=== PATIENT | female | born 1950 | race Caucasian/White ===

== ENCOUNTER → 2018-04-10 10:08 | Outpatient (CLI) | payer MEDICARE, SELFPAY ==
--- NOTE | 2018-04-10 | DI.MRI.S_ITS ---
PROCEDURE: MR KNEE LT WO CON INDICATIONS: PRIMARY OSTEOARTHRITIS LEFT KNEE TECHNIQUE: Noncontrast sagittal PD fast spin echo and T2 fast spin echo with fat saturation, sagittal 3-D FLASH with fat saturation; coronal T1 spin echo and PD fast spin echo with fat saturation, and axial PD fast spin echo with fat saturation through the knee. COMPARISON: [facility] Outside Film, MR, MR KNEE LEFT WITHOUT CONTRAST, 01/20/2018, 11:33. FINDINGS: Image quality: Excellent. Menisci: There is medial extrusion of the medial meniscus. There is a marked Cook signal intensity within the medial meniscal body and posterior horn, demonstrating superior and inferior articular surface extension, indicating degenerative tearing. Radial tearing of the anterior horn medial meniscus is present adjacent to the medial meniscal body. There is amorphous high signal intensity within the anterior and posterior horns of the lateral meniscus, demonstrating superior and inferior articular surface extension. Cruciate ligaments: The anterior and posterior cruciate ligaments appear intact. Medial structures: The medial collateral ligament appears intact. Visualized portions of the pes anserinus tendons appear normal. There is mild T2 signal elevation adjacent to the tibial insertion of the semimembranosus. No abnormal bursal fluid. Lateral structures: The lateral collateral ligament, long and short heads of the biceps femoris tendon appear intact. The popliteus tendon appears normal. Iliotibial band appears normal. Anterior structures: The quadriceps and patellar tendons appear intact. Patellar alignment is normal. No femoral trochlear dysplasia or ventral trochlear prominence. No edema in the infrapatellar fat pad. Bones and cartilage: No bone marrow contusions or fractures. There is increased, moderate ill-defined T2 signal elevation within the weightbearing aspects of the medial femoral condyle and medial tibial plateau, compatible with degenerative marrow edema. There is moderate tricompartmental periarticular osteophyte formation. Severe diffuse articular cartilage loss overlies the weightbearing aspects of the medial femoral condyle and medial tibial plateau, as before. Mild diffuse articular cartilage loss overlies the weightbearing aspects of the lateral femoral condyle and lateral tibial plateau, as before. There is moderate articular cartilage loss overlying the medial patellar facet and medial apex. Joint space: There is a large knee joint effusion and a trace Aguilar's cyst. There is a 43 mm ganglion cyst along the popliteus. Normal appearing synovial plicae are incidentally noted. IMPRESSION: 1. Medial and lateral meniscal tearing. 2. Tricompartmental osteoarthritis with associated articular cartilage loss. 3. Knee joint effusion, Aguilar's cyst, and ganglion cyst along the popliteus. 4. Insertional tendinitis of the semimembranosus. Dictated by: Sugey Cook M.D. on 04/10/2018 at 11:45 Approved by: Sugey Cook M.D. on 04/10/2018 at 11:49
== END ==
PROVIDERS: PCP Family Medicine; Visit Provider Orthopaedic Surgery
DX: M17.12 Unilateral primary osteoarthritis, left knee (principal); S83.282A Other tear of lateral meniscus, current injury, left knee, initial encounter; S83.242A Other tear of medial meniscus, current injury, left knee, initial encounter; M25.462 Effusion, left knee; M71.22 Synovial cyst of popliteal space [Baker], left knee; M67.462 Ganglion, left knee
CPT/HCPCS: 73721

== ENCOUNTER → 2018-04-22 09:52 | Outpatient (CLI) | payer MEDICARE, SELFPAY ==
[2018-04-22 12:10] LABS: Add Manual Diff / Slide Review NO; Basophils Percent Auto 0.3 % (0-2); Eosinophils Percent Auto 1.6 % (2-4); Hematocrit 40.4 % (36-46); Hemoglobin 13.6 g/dL (12.0-16.0); Lymphocytes Percent Auto 26.3 % (25-40); Mean Corpuscular HGB Conc 33.6 % (30-36); Mean Corpuscular Hemoglobin 30.8 PG (26-34); Mean Corpuscular Volume 91.8 fL (80-100); Monocytes Percent Auto 11.8 % (3-14); Neutrophils Absolute Auto 3700 /uL (3000-5900); Platelet Count 352 X10^3/uL (150-400); Red Cell Distribution Width 13.2 % (11.6-14.8); White Blood Cell Count 6.1 X10^3/uL (4.5-11.0)
[2018-04-22 12:40] LABS: Carbon Dioxide 29 mmol/L (22-32); Chloride 100 mmol/L (98-107); HEMOLYSIS < 15 (0-50); Sodium 141 mmol/L (137-145)
[2018-04-22 12:46] LABS: Potassium 5.5 mmol/L (3.4-5.1)
== END ==
PROVIDERS: PCP Family Medicine; Visit Provider Orthopaedic Surgery
DX: Z01.812 Encounter for preprocedural laboratory examination (principal); Z01.818 Encounter for other preprocedural examination
CPT/HCPCS: 36415; 80051; 85025; 93005

== ENCOUNTER → 2018-04-28 09:37 | Outpatient (CLI) | payer MEDICARE, SELFPAY ==
[2018-04-28 11:19] LABS: Blood Urea Nitrogen 15 mg/dL (7-17); Calcium 9.3 mg/dL (8.4-10.2); Carbon Dioxide 33 mmol/L (22-32); Chloride 100 mmol/L (98-107); Estimated Glomerular Filt Rate > 60.0 mL/min (>60); Glucose 103 mg/dL (80-110); HEMOLYSIS < 15 (0-50); Potassium 4.7 mmol/L (3.4-5.1); Sodium 142 mmol/L (137-145)
== END ==
PROVIDERS: PCP Family Medicine; Visit Provider Physician Assistant
DX: M17.12 Unilateral primary osteoarthritis, left knee (principal)
CPT/HCPCS: 36415; 80048

== ENCOUNTER 2018-05-09 16:05 | Emergency (ER) | payer MEDICARE, SELFPAY ==
[2018-05-09 16:10] VITALS: BP 173/77; PULSE 75; TEMP 36.8; O2SAT 97; BMI 36.5
[2018-05-09 17:43] VITALS: BP 138/58; PULSE 66; RESP 15; TEMP 36.4; O2SAT 98
--- NOTE | 2018-05-09 18:07 | ED.EPISTAXIS ---
HPI - Epistaxis General Chief complaint: Nasal Problem Stated complaint: NON STOP NOSE BLEED Time Seen by Provider: 05/09/18 17:02 Source: patient and family Mode of arrival: ambulatory Limitations: no limitations History of Present Illness HPI Narrative: 67-year-old female nonsmoker presents to the emergency department with her and a chief complaint of a left-sided nosebleed that started a few hours ago in the absence of injury. It will not stop despite all of her efforts at home including pressure and cotton balls. She does not take any blood thinners and denies any recent injury. She does state that the recently turned their furnace on. She is not dizzy nor weak or lightheaded MD complaint: epistaxis Location: left nostril Onset (ago): hour(s) Duration: constant Treatment prior to arrival: nose pinching and head tilted back Related Data Home Medications Medication Instructions Recorded Confirmed aspirin 81 mg PO QPM 04/29/18 05/09/18 Allergies Allergy/AdvReac Type Severity Reaction Status Date / Time No Known Drug Allergies Allergy Verified 05/09/18 16:14 Review of Systems Review of Systems All systems reviewed & are unremarkable except as noted in HPI and below Constitutional Denies chills, Denies fever(s), Denies lethargy and Denies weakness Eyes Denies change in vision, Denies eye discharge, Denies irritation and Denies loss of vision ENT Ears, Nose, Mouth, and Throat: Denies change in voice, Denies neck pain and Denies sore throat Comments: nose bleed Cardiovascular Denies chest pain, Denies irregular heart rhythm, Denies lightheadedness, Denies palpitations, Denies dyspnea, Denies dyspnea on exertion and Denies orthopnea Respiratory Denies cough, Denies dyspnea, Denies dyspnea on exertion and Denies wheezing Gastrointestinal Gastrointestinal: Denies abdominal pain, Denies change in bowel habits, Denies diarrhea, Denies nausea and Denies vomiting Genitourinary Denies hematuria, Denies flank pain, Denies urinary incontinence and Denies urinary urgency Musculoskeletal Denies neck pain Integumentary/Breasts Denies pruritus, Denies erythema, Denies rash and Denies wounds Neurologic Denies confusion, Denies loss of vision and Denies weakness Psychiatric Denies anxiety, Denies confusion, Denies depression, Denies homicidal ideation and Denies suicidal ideation Endocrine Denies palpitations Hematologic/Lymphatic Denies easy bruising Allergic/Immunologic Denies wheezing PFSH Medical History Arthritis (Acute) Dandruff (Acute) Dry skin (Acute) Elevated cholesterol (Acute) Numbness and tingling in both hands (Acute) Upper GI bleed (Acute) Surgical History Hx of tonsillectomy (Acute) Social History Smoking Status: Former smoker Exam Narrative Exam Narrative: GEN: AOx3 and in mild distress EYES: Pupils are equal, round, and reactive to light and accommodation. Extraoccular muscles are intact bilaterally. There is no subconjunctival hemorrhage or exudate. ENT: Active bleeding from left there. There is what appears to be an irritated polyp on the septum and some small area of irritated septum just inferior and posterior. CHEST: Lungs are clear to auscultation bilaterally and free of wheezes, rales, or rhonchi. Heart rate is regular rhythm, there are no murmurs, clicks, rubs, or gallops. There is no chest wall tenderness. ABD: Abdomen is soft and nontender. There is no guarding or rebound. Bowel sounds are normal in all 4 quadrants. There is no mass or organomegaly. EXT: Full painless ROM of all extremities with no loss of sensation or strength. SKIN: Warm, pink, and dry. No erythema or rash Initial Vital Signs Initial Vital Signs: Vital Signs Temperature 98.2 F 05/09/18 16:10 Pulse Rate 75 05/09/18 16:10 Blood Pressure 173/77 H 05/09/18 16:10 Pulse Oximetry 97 05/09/18 16:10 Procedures Epistaxis Control Time Out Performed: No Nostril: left Nose Prepped With: oxymetazoline Direct Inspection: yes Clots Removed by: suction Cautery Used: silver nitrate Patient Tolerated Procedure: well Course Vital Signs - 8 hr 05/09/18 17:43 05/09/18 19:03 Temperature 97.6 F 97.5 F L Pulse Rate 66 72 Respiratory Rate 15 16 Blood Pressure [Left Arm] 138/58 L 158/67 H Pulse Oximetry 98 96 MDM - Epistaxis MDM Narrative Medical decision making narrative: Patient has visualized source of bleeding which has stopped with cautery. She has been observed for 30 min and is ready for discharge. She has been given appropriate return precautions Discharge Plan Departure Patient Disposition: Home Clinical Impression: Acute anterior epistaxis Discharge Date/Time: 05/09/18 19:09 Interventions: ED Discharge Assessment Last Done: 05/09/18 19:09 Instructions: DI for Nosebleed Activity Restrictions/Additional Instructions: *You have been diagnosed with [ anterior nose bleed] *What to do: *Take medications as directed *Follow up with your primary care provider in 2-3 days, call for an appointment. Let them know you were seen in the Emergency Department and that we ask that you be seen in follow up *Return to ER if you should have any new, worsening or concerning symptoms] Prescriptions: No Action aspirin 81 mg Tablet,Delayed Release (Dr/Ec) 81 mg PO QPM RF: 0 Referrals: Ayden Solano MD [Primary Care Provider] -
[2018-05-09 19:03] VITALS: BP 158/67; PULSE 72; RESP 16; TEMP 36.4; O2SAT 96
== END 2018-05-09 19:09 | disposition home or self-care (01) ==
PROVIDERS: Emergency Provider Emergency Medicine; PCP Family Medicine
DX: R04.0 Epistaxis (principal)
CPT/HCPCS: 30901; 99282

== ENCOUNTER 2018-05-15 05:57 | Day surgery (SDC) | payer MEDICARE, SELFPAY ==
[2018-04-29 12:58] VITALS: BMI 36.5
[2018-05-15] VITALS (13 sets, daily range): BP systolic 118–142; BP diastolic 40–80; PULSE 62–87; RESP 10–18; TEMP 36.2–36.8; O2SAT 94–97; BMI 36.5
--- NOTE | 2018-05-15 06:00 | DI.RAD.S_ITS ---
PROCEDURE: XR KNEE LT 1TO2V INDICATIONS: prosthesis placement TECHNIQUE: 2 view(s) of the knee acquired. COMPARISON: [facility], X-ray Left Knee 04/10/2017, MRI Left Knee 01/20/2018 and 04/10/2018. FINDINGS: Bones: Patient is status post knee joint arthroplasty. Hardware components are in expected positions. Visualized bony structures are intact. Soft tissues: Overlying postoperative changes are noted. IMPRESSION: Expected postsurgical appearance. Dictated by: Ashli Rivera M.D. on 05/15/2018 at 10:45 Approved by: Ashli Rivera M.D. on 05/15/2018 at 10:45
[2018-05-15] MEDS: LACTATED RINGERS 1,000 ML 42 ML IV ×2 (06:45→09:19)
[2018-05-15] MEDS: ACETAMINOPHEN 325 MG TABLET 975 MG PO ×2 (07:23→14:55)
[2018-05-15] MEDS: CELECOXIB 200 MG CAPSULE PO (07:23)
[2018-05-15] MEDS: PREGABALIN 75 MG CAPSULE PO (07:23)
--- NOTE | 2018-05-15 07:35 | PM.PREOP ---
Pre-operative Note Interval Note Pre-op Check: Yes History & Physical Reviewed by Physician and Yes Exam Performed Changes: No
--- NOTE | 2018-05-15 07:39 | P.OP_ITS ---
Operative Date/Time/Diagnoses Date of procedure: 05/15/18 Time of procedure: 10:16 Pre-op diagnosis: Left knee osteoarthritis Post-op diagnosis: same Procedure & Clinicians Procedure: Left total knee arthroplasty Same procedure as scheduled: Yes Indications: The patient presents today for total knee arthroplasty after failure of conservative treatment. The nature of the procedure including the risks and benefits, alternatives, postoperative course and expected outcome were discussed and all questions answered. Consent was obtained. Operative site confirmed and marked. Surgeon: Jim Tello Thread Drawer: Froylan Kapoor Anesthesia Type: General, Spinal, Peripheral nerve block and Local Operative Notes Findings: Severe osteoarthritis with varus alignment. Closure Type: primary Specimen(s): none sent Implants & Drains: Valentin and [email or web address] [place] BCS: 5 femoral component, 5 tibial component, 9 mm BCS polyethylene tray and 32 x 9 mm round patella Applied: implant(s) Estimated Blood Loss (mL): 50 Blood products transfused: none Tourniquet time (min): 21 Procedure in detail: The patient was taken to the operative suite and placed under general and spinal anesthesia with an adductor nerve block. The patient was given prophylactic antibiotics prior to surgery. The patient was also given tranexamic acid, 1 g, just prior to surgery for postoperative hemostasis. The lateral knee was prepped and the joint injected with 20 mL of 1% Lidocaine with epinephrine. The knee was then prepped and draped in usual sterile fashion. The leg was exsanguinated with an Esmarch dressing and the tourniquet raised to 300 torr. A 15 cm anterior incision was made. Next a medial trivector arthrotomy was made. The extensor mechanism was marked to ensure accurate repair. Initial exposing dissection was carried out medially and laterally. The knee was then extended and the patellar thickness was measured and a cut made removing approximately 9 mm of bone with a goal of restoring normal patellar thickness. The patella was then sized and drilled. Some excess lateral bone was excised and the patellofemoral ligament released. The tourniquet was then released. The knee was then flexed and the Valent[employer] femoral guide was placed. The anterior pins were placed and the distal rotation holes drilled. The distal cutting guide was placed and the templated distal femoral cut was made. The templating cutting block was then placed and the anterior, posterior and chamfer cuts made. The Valent[employer] tibial guide was placed and the alignment checked along the axis of the proximal tibial with a ciera. The proximal tibial cut was then made with an oscillating saw. All meniscus and bony debris was then removed. Flexion extension gaps were checked. No specific balancing was required other than routine exposure and removal of osteophytes. The soft tissues were then injected with a combination of 20 mL of half percent Marcaine with epinephrine and 20 mL of Exparel. The trial components were then placed. The knee went into full extension and flexion beyond 120?. There was excellent medial- lateral balance throughout motion. Patellar tracking was X. The trial components were removed and size is confirmed for the final implants. The knee was then exsanguinated with an Esmarch dressing and the tourniquet reapplied for cementing. The knee was cleansed with Pulsavac irrigation and dried. The final components were cemented in with high viscosity vacuum mixed bone cement with antibiotics. The knee was held in extension and the patellar clamp until the cement had adequately cured. The knee was then irrigated with dilute Betadine solution. The extensor mechanism was closed with 5 interrupted #1 Vicryl sutures in 90 degrees of flexion. The joint was then injected with a combination of 1 g of tranexamic acid and 20 mL of quarter percent Marcaine with epinephrine. The subcutaneous tissue was closed with 2-0 Vicryl. The skin was closed with tereso and surgical adhesive. Crystal dressing and Hemal wrap were then applied. Complications: none Condition: stable Disposition: PACU Plan for aftercare: [facility] protocol.
[2018-05-15] MEDS: fentaNYL 100 MCG/2 ML INJ 50 MCG IV (07:53)
[2018-05-15] MEDS: MIDAZOLAM 2 MG/2 ML VIAL IV (07:53)
[2018-05-15] MEDS: CEFAZOLIN VIAL 3 GM in SODIUM CHLORIDE 0.9% 100 ML 200 ML IV (08:21)
--- NOTE | 2018-05-15 08:22 | SUR.PREOP ---
Block start time [0805] . Monitoring initiated and maintained throughout procedure. Oxygen and medications given per anesthesiologist instructions. Patient remained stable throughout procedure, no adverse reactions noted. Block end time [0815].
[2018-05-15] MEDS: LIDOCAINE 1% W/EPI INJ 20 ML INJ (08:30)
[2018-05-15] MEDS: TRANEXAMIC ACID 1,000 MG VIAL 1000 MG INJ ×2 (08:50→09:13)
--- NOTE | 2018-05-15 09:01 | SUR.OPER ---
Supine on padded OR bed. Pillow under head, arms secured on padded armboards <90 degree abduction. Safety belt across torso. Non-operative leg secured with tape over blanket over lower leg. Operative leg secured in DeMayo/Neymar positioner. Foam padded brace at thigh of operative leg.
[2018-05-15] MEDS: BUPIVACAINE 0.5% W/ EPI (PF) VIAL 30 ML INJ (09:10)
[2018-05-15] MEDS: BUPIVACAINE LIPOSOME 266 MG/20 ML VIAL INJ (09:11)
--- NOTE | 2018-05-15 10:54 | SUR.PHASEI ---
report to briseida melendez left in stable condition, glasses are with pt.
[2018-05-15] MEDS: LACTATED RINGERS 1,000 ML 125 ML IV (13:27)
--- NOTE | 2018-05-15 14:57 | CM.IDA ---
Discharge Planning/Care Management CM Discharge Assessment Start: 05/15/18 14:52 Freq: Status: Active Protocol: Document 05/15/18 14:52 TERESSA (Rec: 05/15/18 14:57 TERESSA [id number]) Discharge Planning Assessment Assigned Manufacturing Controller CHAVA Hudson DPOA/Assigned Designee Name Michael Shea, spouse Contact Information [phone] Advance Directives? No History Provided By Patient Prior Living Arrangements House Household Members spouse Type of transporation used prior to Drives own vehicle admit Independent with ADL's Yes Is patient alert and oriented? Yes Comment Information pending DCP assessment Comment Pt is in the OR today for her hip surgery. DCP assessment and therapy assessment pending pt's arrival to the medical floor. Comment Needs unknown at this time. Pt is hoping to return home w/ spouse to assist Transportation Arrangement Likely home w/spouse to assist Review Status In Process
[2018-05-15] MEDS: CEFAZOLIN 2 GM/100 ML FROZ.PIGGY IV (15:44)
--- NOTE | 2018-05-15 17:06 | PM.DS.1 ---
History of Present Illness Date Patient Seen: 05/15/18 Time Patient Seen: 17:07 Chief complaint: [id number] LEFT TOTAL KNEE ARTHROPLASTY Narrative: The patient presents today for total knee arthroplasty after failure of conservative treatment. The nature of the procedure including the risks and benefits, alternatives, postoperative course and expected outcome were discussed and all questions answered. Consent was obtained. Operative site confirmed and marked. Discharge Providers Date of admission: 05/15/18 05:57 Primary care physician: Ayden Solano MD Consults: 05/15/18 11:10 Consult to Discharge Planning Routine Comment: Consult to Physical Therapy Evaluate & Treat Comment: Patient may leave later this afternoon. Physician Instructions: postop TKA protocol Consult to Respiratory Therapy Evaluate & Treat Comment: Physician Instructions: Evaluate and treat Discharge provider: Stephanie Roth PA-C Discharge Date: 05/15/18 Summary Discharge Diagnosis: Left knee osteoarthritis Hospital Course: Patient admitted status post Left total knee arthroplasty by Dr. Tello on 05/15/18. Patient tolerated procedure well with no major complications. Patient transferred to the floor and seen by PT who recommended that she be discharged home with outpatient PT. Her pain was well controlled with 975mg Tylenol. Patient is stable and ready for discharge on 05/15/18. Calfs are soft, compressible and non tender bilaterally. Cover site dressing on L knee. Status at Discharge Functional status at discharge: uses cane/walker Overall status at discharge: patient is progressing back to baseline Time Spent with Patient Less than 30 minutes Exam Vital Signs (past 8 hours): - 05/15/18 10:07 05/15/18 10:13 05/15/18 10:17 Temperature 98.3 F Pulse Rate 82 78 78 Respiratory Rate 10 L 10 L 13 Blood Pressure 137/67 128/62 118/40 L Pulse Oximetry 95 96 96 05/15/18 10:34 05/15/18 10:41 05/15/18 10:50 Temperature 97.1 F L 98.2 F Pulse Rate 66 69 62 Respiratory Rate 12 16 18 Blood Pressure 124/67 121/54 L Pulse Oximetry 96 97 96 05/15/18 11:20 05/15/18 11:50 05/15/18 12:50 Temperature 97.9 F 98.1 F 98.0 F Pulse Rate 63 68 71 Respiratory Rate 18 18 18 Blood Pressure 138/75 138/75 133/74 Pulse Oximetry 95 96 94 05/15/18 13:50 05/15/18 14:28 05/15/18 15:34 Temperature 98.0 F 97.9 F Pulse Rate 70 71 87 Respiratory Rate 18 Blood Pressure 142/80 H 142/74 H Pulse Oximetry 95 97 94 Oxygen Delivery Method Room Air Narrative Exam Narrative: Patient examined in chair. Patient is sitting upright in chair comfortably in no acute distress. is sitting bedside. Patient is AOx3. Radial and dorsalis pedis pulses 2+ and symmetric. 5/5 muscle strength in plantarflexion, dorsiflexion and defensive line coach bilaterally. Sensation to light touch intact in LE bilaterally. L knee dressing CDI. Ricky dressing noted on L knee. Calfs are soft, non tender and compressible bilaterally. Patient reports that her pain is well managed with Tylenol 975mg. She saw PT today. She reports that she would like to go home today. Her is home to assist her upon discharge. Patient is [facility] and reports having her post op prescriptions already filled at home. She denies any SOB, chest pain, nausea, vomiting, fever or chills. Discharge Plan Discharge Plan Patient Disposition: Home Discharge comment: Aspirin 81 mg for DVT prophylaxis. Discharge Med Rec/Prescriptions Prescriptions: Continue aspirin 81 mg Tablet,Delayed Release (Dr/Ec) 81 mg PO QPM RF: 0 Follow up/Referrals: Jim Tello MD [Physician] - As previously scheduled (Follow up at [facility] [place] on 05/22/18 at scheduled appointment.) Provider Discharge Instructions Diet: Regular Activity: Daily knee range of motion exercises. Cold/Heat Therapy: Ice to knee for comfort. Skin/Wound/Dressing Care Report to your healthcare provider any signs of infection, such as:: chills, fever, increased pain and unusual drainage Dressing: Change ricky dressing as instructed. Visit Report/Discharge Packet Instructions: DI for Knee Replacement Discharge Data Primary Care Provider: Ayden Solano Attending Provider: Jim Tello Admit Date/Time: 05/15/18 05:57
--- NOTE | 2018-05-15 17:13 | P.DS_ITS ---
History of Present Illness Date Patient Seen: 05/15/18 Time Patient Seen: 17:07 Chief complaint: [id number] LEFT TOTAL KNEE ARTHROPLASTY Narrative: The patient presents today for total knee arthroplasty after failure of conservative treatment. The nature of the procedure including the risks and benefits, alternatives, postoperative course and expected outcome were discussed and all questions answered. Consent was obtained. Operative site confirmed and marked. Discharge Providers Date of admission: 05/15/18 05:57 Primary care physician: Ayden Solano MD Consults: 05/15/18 11:10 Consult to Discharge Planning Routine Comment: Consult to Physical Therapy Evaluate & Treat Comment: Patient may leave later this afternoon. Physician Instructions: postop TKA protocol Consult to Respiratory Therapy Evaluate & Treat Comment: Physician Instructions: Evaluate and treat Discharge provider: Stephanie Roth PA-C Discharge Date: 05/15/18 Summary Discharge Diagnosis: Left knee osteoarthritis Hospital Course: Patient admitted status post Left total knee arthroplasty by Dr. Tello on 05/15/18. Patient tolerated procedure well with no major complications. Patient transferred to the floor and seen by PT who recommended that she be discharged home with outpatient PT. Her pain was well controlled with 975mg Tylenol. Patient is stable and ready for discharge on 05/15/18. Calfs are soft, compressible and non tender bilaterally. Cover site dressing on L knee. Status at Discharge Functional status at discharge: uses cane/walker Overall status at discharge: patient is progressing back to baseline Time Spent with Patient Less than 30 minutes Exam Vital Signs (past 8 hours): - 05/15/18 10:07 05/15/18 10:13 05/15/18 10:17 Temperature 98.3 F Pulse Rate 82 78 78 Respiratory Rate 10 L 10 L 13 Blood Pressure 137/67 128/62 118/40 L Pulse Oximetry 95 96 96 05/15/18 10:34 05/15/18 10:41 05/15/18 10:50 Temperature 97.1 F L 98.2 F Pulse Rate 66 69 62 Respiratory Rate 12 16 18 Blood Pressure 124/67 121/54 L Pulse Oximetry 96 97 96 05/15/18 11:20 05/15/18 11:50 05/15/18 12:50 Temperature 97.9 F 98.1 F 98.0 F Pulse Rate 63 68 71 Respiratory Rate 18 18 18 Blood Pressure 138/75 138/75 133/74 Pulse Oximetry 95 96 94 05/15/18 13:50 05/15/18 14:28 05/15/18 15:34 Temperature 98.0 F 97.9 F Pulse Rate 70 71 87 Respiratory Rate 18 Blood Pressure 142/80 H 142/74 H Pulse Oximetry 95 97 94 Oxygen Delivery Method Room Air Narrative Exam Narrative: Patient examined in chair. Patient is sitting upright in chair comfortably in no acute distress. is sitting bedside. Patient is AOx3. Radial and dorsalis pedis pulses 2+ and symmetric. 5/5 muscle strength in plantarflexion, dorsiflexion and briquette molder bilaterally. Sensation to light touch intact in LE bilaterally. L knee dressing CDI. Ricky dressing noted on L knee. Calfs are soft, non tender and compressible bilaterally. Patient reports that her pain is well managed with Tylenol 975mg. She saw PT today. She reports that she would like to go home today. Her is home to assist her upon discharge. Patient is [facility] and reports having her post op prescriptions already filled at home. She denies any SOB, chest pain, nausea , vomiting, fever or chills. Discharge Plan Discharge Plan Patient Disposition: Home Discharge comment: Aspirin 81 mg for DVT prophylaxis. Discharge Med Rec/Prescriptions Prescriptions: Continue aspirin 81 mg Tablet,Delayed Release (Dr/Ec) 81 mg PO QPM RF: 0 Follow up/Referrals: Jim Tello MD [Physician] - As previously scheduled (Follow up at [facility] [place] on [place] at scheduled appointment.) Provider Discharge Instructions Diet: Regular Activity: Daily knee range of motion exercises. Cold/Heat Therapy: Ice to knee for comfort. Skin/Wound/Dressing Care Report to your healthcare provider any signs of infection, such as:: chills, fever, increased pain and unusual drainage Dressing: Change ricky dressing as instructed. Visit Report/Discharge Packet Instructions: DI for Knee Replacement Discharge Data Primary Care Provider: Ayden Solano Attending Provider: Jim Tello Admit Date/Time: 05/15/18 05:57
--- NOTE | 2018-05-15 17:17 | PT.IIE ---
Current Diagnoses Bilateral primary osteoarthritis of knee (05/15/18) Surgery Performed Operation Date: 05/15/18 07:45 Actual Procedures p Total Knee Arthroplasty(Left) - Jim Tello MD Surgical History (Last Reviewed 05/10/18 @ 00:48 by Song Sewell DO) Hx of tonsillectomy (Acute) Medical History (Last Reviewed 05/10/18 @ 00:48 by Song Sewell DO) Arthritis (Acute) Dandruff (Acute) Dry skin (Acute) Elevated cholesterol (Acute) Numbness and tingling in both hands (Acute) Upper GI bleed (Acute) Physical Therapy Inpatient Evaluation/Re-Eval M1 PT/OT-IP Prior Functional Status Start: 05/15/18 16:58 Freq: NEEDED Status: Active Protocol: Document 05/15/18 16:59 EA (Rec: 05/15/18 17:17 EA [id number]) Medical Review Prior Functional Status Medical History Reviewed Yes Diet/Fluid Consistency Regular Mobility and Gait Patient was indep in all functional mobility with ability to ambulate 500 yards with no assistive device; reports no fall in the past six months Social History Household Members spouse Living Arrangements House Number of Floors (Floors) One Floor Home Equipment Front Wheel Walker Straight Cane Raised Toilet Seat w/Armrests Employment Status Retired Additional Social History Comment Lives with her ; will look after the patient once discharge. M2 PT-IP Current Condition Start: 05/15/18 16:58 Freq: NEEDED Status: Active Protocol: Document 05/15/18 16:59 EA (Rec: 05/15/18 17:17 EA [id number]) Physical Therapy Current Condition Current Condition Evaluation Date 05/15/18 Treatment Diagnosis s/p L TKA Onset Date 05/15/18 Weight Bearing Status Weight Bearing Status Weight Bear as Tolerated M3 PT-IP Subjective Start: 05/15/18 16:58 Freq: NEEDED Status: Active Protocol: Document 05/15/18 16:59 EA (Rec: 05/15/18 17:17 EA [id number]) Subjective Physical Therapy Visit Type Type Initial Evaluation Visit Start Time 16:15 Visit Stop Time 17:00 Total Visit Minutes 45 Physical Therapy Visit Comments Patient Comments Patient would like to mobilize in the room to know if she is able to go home. Patient Goals Indep in all functional transfers and mobility. Learn safe home exercises program Therapy Pain Assessment Pain When Pain Assessed At Rest Pain Present Pain Present Pain Reported Location Left Intensity 2 Scale Used Numeric (1 - 10) Description Acute M4 PT-IP Mobility and Gait Start: 05/15/18 16:58 Freq: NEEDED Status: Active Protocol: Document 05/15/18 16:59 EA (Rec: 05/15/18 17:17 EA [id number]) PT-Bed Mobility Assessment Rolling Level of Assist Independent Supine to Sit Supine to Sit Independent Sit to Supine Sit to Supine Independent Scooting Scooting to Edge of Bed Independent PT-Transfer Assessment Sit to and From Stand Sit to and from Stand Independent Equipment Transfer Assistive Device Front Wheeled Walker Orthotic/Prosthetic Devices or Brace: No Transfers Transfer Destination Bed Chair Toilet Bedside Commode Transfer Technique stepping transfers Transfer Ability Level of Assist Standby Assistance Comments Mobility Comments Patient perform transfer with no signs of instability or discomfort. Gait Assessment Gait Gait Assistance Required: Standby Assistance Distance (Feet) 40 Able to Maintain Weight Bearing Status Yes During Gait Assistive Devices Assistive Device Front Wheeled Walker Gait Deviations General Gait Pattern Antalgic Factors Limiting Gait Function Factors Limiting Gait Function Pain Comments Gait Comments No instability noted during ambulation; patient exhibits safe mobility and understand all gait mechanics Stair Climbing Assessment Comments Stair Climbing Comments Patient and learned safe stairs and car transfers PT-Balance Assessment Sitting Balance and Reactions Static Sitting Balance Ability Normal Standing Balance and Reactions Static Standing Balance Ability Normal M5 PT-IP Objective Assessments Start: 05/15/18 16:58 Freq: NEEDED Status: Active Protocol: Document 05/15/18 16:59 EA (Rec: 05/15/18 17:17 EA [id number]) Orientation Orientation/Cognition Level of Alertness Alert Orientation Birthday Month Date Year Day of Week Place Situation Language Function Ability No Deficits Noted Safety Awareness Understands Safety Issues Memory Description No Deficits Noted Gross Range of Motion Upper Extremity ROM Assessment Within Functional Limits Lower Extremity ROM Assessment Left Impaired Impairments Knee Strength Upper Extremity Strength Assessment Within Functional Limits Lower Extremity Strength Assessment Left Impaired Knee not properly tested but with at least 3/5 Comments Strength Comments Patient exhibits functional strength to both LE's Sensation Assessment Sensation Gross Sensation WNL M6 PT-IP Treatment Start: 05/15/18 16:58 Freq: NEEDED Status: Active Protocol: Document 05/15/18 16:59 EA (Rec: 05/15/18 17:17 EA [id number]) Physical Therapy Treatment Exercises Exercises Ankle Pumps Quad Sets Heel Slides Straight Leg Raises Short Arc Quads Passive Knee Extension Hang Seated Knee Flexion/Extension Education Education Provided Precautions Weight Bearing Status Post-Op Packet Safety M7 PT-IP Assessment and Plan Start: 05/15/18 16:58 Freq: NEEDED Status: Active Protocol: Document 05/15/18 16:59 EA (Rec: 05/15/18 17:17 EA [id number]) PT Summary Assessment and Plan Potential Rehabilitation Potential Excellent Summary Impairments Pain Strength Progress Towards Goals Progressing Toward Goals Assessment Summary Patient exhibits modified independent in all functional transfer and mobility with ability perform sink standing activity right after 30 ft of ambulation; no noted any signs of instability. Patient is safe to discharge from PT. Goals Bed Mobility Goal Independent Frequency of Treatment Frequency Of Treatment Discharge Discharge Recommendations PT Discharge Recommendations Home with Assistance
[2018-05-15] MEDS: IBUPROFEN 600 MG TABLET PO (18:11)
== END 2018-05-15 18:37 | disposition home or self-care (01) ==
LOC: AC 13:03 → OR 05-20 09:30
PROVIDERS: PCP Family Medicine; Visit Provider Orthopaedic Surgery
PROC: 0SRD0JZ Replacement of Left Knee Joint with Synthetic Substitute, Open Approach (ICD-10-PCS; CPT 27447; principal; 2018-05-15 07:45)
DX: M17.12 Unilateral primary osteoarthritis, left knee (principal)
CPT/HCPCS: 27447; 64450; 73560; 94760; 97161; 97530; 97535; C1776; C9290; J0690; J1100; J2250; J2405; J2704; J2795; J3010

== ENCOUNTER → 2022-07-17 09:19 | Outpatient (CLI) | payer MEDICARE, SELFPAY ==
[2018-05-15 14:42] VITALS: BMI 36.5
[2022-07-17 10:18] LABS: Hemoglobin A1C% w Est Avg Glu 5.9 % (4.0-6.0)
[2022-07-17 10:45] LABS: Alanine Aminotransferase 34 IU/L (<35); Albumin 4.3 g/dL (3.5-5.0); Albumin Globulin Ratio 1.1 (1.0-2.8); Alkaline Phosphatase 88 U/L (38-126); Aspartate Aminotransferase 29 IU/L (14-36); BUN Creatinine Ratio 31.3 (6-22); Bilirubin Total 0.6 mg/dL (0.2-1.3); Blood Urea Nitrogen 21 mg/dL (7-17); Calcium 8.8 mg/dL (8.4-10.2); Carbon Dioxide 30 mmol/L (22-32); Chloride 97 mmol/L (98-107); Cholesterol 245 mg/dL (140-199); Estimated Glomerular Filt Rate > 60 mL/min (>60); Glucose 110 mg/dL (80-110); HDL Cholesterol 60 mg/dL (40-60); HEMOLYSIS < 15 (0-50); LDL Cholesterol Calculated 151 mg/dL (<100); Potassium 4.2 mmol/L (3.4-5.1); Sodium 138 mmol/L (137-145); Total Protein 8.3 g/dL (6.3-8.2); Triglycerides 171 mg/dL (35-150)
== END ==
PROVIDERS: PCP Family Medicine; Referring Provider Family Medicine; Visit Provider Family Medicine
DX: R03.0 Elevated blood-pressure reading, without diagnosis of hypertension (principal); I48.91 Unspecified atrial fibrillation
CPT/HCPCS: 36415; 80053; 80061; 83036

== ENCOUNTER → 2022-09-12 15:26 | Outpatient (CLI) | payer MEDICARE, SELFPAY ==
[2018-05-15 14:42] VITALS: BMI 36.5
--- NOTE | 2022-09-12 15:27 | DI.RAD.S_ITS ---
PROCEDURE: XR FOOT RT MIN 3V INDICATIONS: Rt foot pain. turned hher foot. pain laterally TECHNIQUE: 3 views of the foot were acquired. COMPARISON: None. FINDINGS: Bones: Mild hallux valgus is seen. [id number] osteoarthritic changes are noted throughout right foot most notably at 1st TMT joint and 1st MTP joint. Well-defined plantar calcaneal enthesophyte is seen. No fractures or dislocations. No suspicious bony lesions. Soft tissues: No tibiotalar joint effusion. Achilles tendon appears normal. IMPRESSION: Mild hallux valgus. Osteoarthritis throughout right foot. No fracture or dislocation. Calcaneal enthesophyte. Dictated by: Freedom Love M.D. on 09/12/2022 at 17:59 Approved by: Freedom Love M.D. on 09/12/2022 at 18:00
== END ==
PROVIDERS: Family Provider Family Medicine; PCP Family Medicine; Referring Provider Family Medicine; Visit Provider Family Medicine
DX: S93.601A Unspecified sprain of right foot, initial encounter (principal); M20.11 Hallux valgus (acquired), right foot; M19.071 Primary osteoarthritis, right ankle and foot; M77.31 Calcaneal spur, right foot; X50.0XXA Overexertion from strenuous movement or load, initial encounter
CPT/HCPCS: 73630

== ENCOUNTER 2022-09-27 13:45 | Outpatient (RCR) | payer MEDICARE, SELFPAY ==
[2018-05-15 14:42] VITALS: BMI 36.5
--- NOTE | 2022-09-12 15:37 | PT.OIE ---
Current Diagnoses Plantar fascial fibromatosis (09/12/22) Achilles tendinitis, unspecified leg (09/12/22) Past Medical History (Last Updated 08/13/22 @ 18:27 by Kenya Lua) Common bile duct dilatation Upper GI bleed Past Surgical History (Last Updated 08/13/22 @ 18:27 by Kenya Lua) Anesthesia History of left knee replacement (~05/2018) Hx of tonsillectomy Visit Care Team Role Provider Type Sophia Ruiz DO Attending Provider Physician Family Provider Primary Care Provider Referring Provider Specialty: [facility] Address: [address] [place] [address], [address], [facility] Email: [email or web address] Physical Therapy Initial Evaluation PT-OP-A Visit Information Start: 09/12/22 08:04 Freq: Status: Active Protocol: Document 09/12/22 08:06 TH (Rec: 09/12/22 12:37 TH [id number]) Out-Patient Physical Therapy Visit Information Visit Information Visit Type Initial Evaluation Visit Start Time 09:00 Visit Stop Time 09:45 Total Visit Minutes 45 Visit Number 1 Number of FOOD SERVICE UTILITY WORKER Visits 0 PT-OP-B Current Condition Start: 09/12/22 08:04 Freq: Status: Active Protocol: Document 09/12/22 08:06 TH (Rec: 09/12/22 12:37 TH [id number]) Current Condition History of Current Condition History of Current Condition Pt states that r foot pain began 07/31/22. As a result of foot pain pt also began to develope lower back. Since initial injury pt states pain to LB and foot have kamryn improving. Using a 4WW has been helping with foot pain. Pt lives in one ganesh home. There are two steps into home and pt is able to navigate steps using rail. Prior Treatments and Tests Hx of left knee TKA. R knee has severe OA. / pain in right foot marin while at rest and increass with walking/ standing. Standing/walking is difficult. Prior Functional Status Baseline Function- ADL's Independent Current Functional Impairments (Reported) Functional Limitations- ADL's IND Functional Limitations- Mobility/Gait Currently using 4WW with longer distances. PT-OP-F Manual Assessment Start: 09/12/22 08:04 Freq: Status: Active Protocol: Document 09/12/22 08:06 TH (Rec: 09/12/22 12:37 TH [id number]) Manual Assessments Other Manual Assessments Other Manual Assessments L ankle increased pronation, L knee hyperextended, r trunk ant rotated, right hip ant rotated, r leg functionally shorter than l LE. \ Tenderness right peroneal tendons, post. tib tendon, right lateral plantar fascia. left peroneal tendon PT-OP-Q Treatments Start: 09/12/22 08:04 Freq: Status: Active Protocol: Document 09/12/22 08:06 TH (Rec: 09/12/22 12:37 TH [id number]) Self-Care/Home Management Treatment Education Patient Education Home Exercise Program Other Education Access Code: [email or web address] URL: [email or web address] Date: 09/12/2022 Prepared by: Miranda Devine Exercises Standing Hip Flexor Stretch with Foot Elevated - 1 x daily - 7 x weekly - 1 sets - 3 reps - 30-60 sec hold Seated Plantar Fascia Mobilization with Small Ball - 1 x daily - 7 x weekly Seated Hamstring Stretch - 1 x daily - 7 x weekly - 1 sets - 3 reps - 30-60 sec hold Hooklying Clamshell with Resistance - 1 x daily - 7 x weekly - 2-3 sets - 10 reps PT-OP-T Assessment and Plan Start: 09/12/22 08:04 Freq: Status: Active Protocol: Document 09/12/22 08:06 TH (Rec: 09/12/22 12:37 TH [id number]) Physical Therapy Assessment Rehab Potential Rehabilitation Potential Excellent Evaluation Complexity Number of Personal Factors/Comorbidities 0 Number of Body Systems Impaired 1-2 Clinical Presentation at Evaluation Stable Impairments Impairments Activity Tolerance Goals Two Impairment Transfers sit to stand difficult. Short Term Goal (STG) Pt will be able to sit to stand with pain <= 4/10. STG Duration 10/10/22 Halfway Goal (LTG) Pt will be able to sit to stand with minimal to no pain. LTG Duration 12/05/22 One Impairment Prolonged walking / standing difficult. Short Term Goal (STG) Pt will be able to ambulate / stand for >= 30 min with <= 4 /10 pain. STG Duration 10/10/22 Halfway Goal (LTG) Pt will be able to ambulate / stand for >= 30 min with minimal to no pain without use of AD. LTG Duration 12/05/22 Assessment Summary Assessment Pt presents with core and hip miuscle imbalance that is leading to fucntional leg length deficit and right plantar fascia strain/ ankle tendinitis. Physical Therapy Plan Frequency and Duration Frequency of Treatment 1-2x/wk Duration of treatment (weeks) 12 Plan of Care Start Date 09/12/22 Plan of Care End Date 12/05/22 Therapeutic Interventions Therapeutic Interventions Gait Training,Home Exercise Program,Joint Mobilizations, Manual Therapy,Neuromuscular Re-education,Orthotic/ Prosthetic Management,Patient/ Caregiver Education,Self-Care/ Home Management,Taping, Therapeutic Activities, Therapeutic Exercises Modalities Cold Pack/Ice Massage,Electric Stimulation,Hot Packs, Iontophoresis,Ultrasound
--- NOTE | 2022-09-12 15:41 | PT.OPPOC ---
Physical, Occupational & Speech Therapy At [facility] Current Diagnoses Plantar fascial fibromatosis (09/12/22) Achilles tendinitis, unspecified leg (09/12/22) Visit Care Team Role Provider Type Sophia Ruiz DO Attending Provider Physician Family Provider Primary Care Provider Referring Provider Specialty: Family Practice Address: [address] [place] [address], [address], [facility] Email: [email or web address] Plan Of Care PT-OP-T Assessment and Plan Start: 09/12/22 08:04 Freq: Status: Active Protocol: Document 09/12/22 08:06 TH (Rec: 09/12/22 12:37 TH [id number]) Physical Therapy Assessment Rehab Potential Rehabilitation Potential Excellent Evaluation Complexity Number of Personal Factors/Comorbidities 0 Number of Body Systems Impaired 1-2 Clinical Presentation at Evaluation Stable Impairments Impairments Activity Tolerance Goals Two Impairment Transfers sit to stand difficult. Short Term Goal (STG) Pt will be able to sit to stand with pain <= 4/10. STG Duration 10/10/22 Snf Goal (LTG) Pt will be able to sit to stand with minimal to no pain. LTG Duration 12/05/22 One Impairment Prolonged walking / standing difficult. Short Term Goal (STG) Pt will be able to ambulate / stand for >= 30 min with <= 4 /10 pain. STG Duration 10/10/22 Operator Supply Goal (LTG) Pt will be able to ambulate / stand for >= 30 min with minimal to no pain without use of AD. LTG Duration 12/05/22 Assessment Summary Assessment Pt presents with core and hip miuscle imbalance that is leading to fucntional leg length deficit and right plantar fascia strain/ ankle tendinitis. Physical Therapy Plan Frequency and Duration Frequency of Treatment 1-2x/wk Duration of treatment (weeks) 12 Plan of Care Start Date 09/12/22 Plan of Care End Date 12/05/22 Therapeutic Interventions Therapeutic Interventions Gait Training,Home Exercise Program,Joint Mobilizations, Manual Therapy,Neuromuscular Re-education,Orthotic/ Prosthetic Management,Patient/ Caregiver Education,Self-Care/ Home Management,Taping, Therapeutic Activities, Therapeutic Exercises Modalities Cold Pack/Ice Massage,Electric Stimulation,Hot Packs, Iontophoresis,Ultrasound Plan of Care Dates Plan of Care Start Date 09/12/22 Plan of Care End Date 12/05/22 Electronically Signed by: Miranda Devine, NAOMY 09/12/22 1410 If you are in agreement with this Plan of Care, please return a signed and dated copy. I have reviewed this Plan of Care and certify that the skilled therapy services above are required to meet the patient?s needs. Physician Signature Date Printed Name and Credentials Clinical Instructor Signature Printed Name and Credentials
--- NOTE | 2022-09-18 15:20 | PT.OTN ---
Current Diagnoses Plantar fascial fibromatosis (09/18/22) Achilles tendinitis, unspecified leg (09/18/22) Physical Therapy Treatment Note PT-OP-A Visit Information Start: 09/12/22 08:04 Freq: Status: Active Protocol: Document 09/18/22 13:02 TH (Rec: 09/18/22 15:20 TH [id number]) Out-Patient Physical Therapy Visit Information Visit Information Visit Type Treatment Note Visit Start Time 13:02 Visit Stop Time 13:45 Total Visit Minutes 43 Visit Number 2 Number of VOCATIONAL REHABILITATION TEACHER Visits 0 PT-OP-B Current Condition Start: 09/12/22 08:04 Freq: Status: Active Protocol: Document 09/12/22 08:06 TH (Rec: 09/12/22 12:37 TH [id number]) Current Condition History of Current Condition History of Current Condition Pt states that r foot pain began 07/31/22. As a result of foot pain pt also began to develope lower back. Since initial injury pt states pain to LB and foot have kamryn improving. Using a 4WW has been helping with foot pain. Pt lives in one ganesh home. There are two steps into home and pt is able to navigate steps using rail. Prior Treatments and Tests Hx of left knee TKA. R knee has severe OA. / pain in right foot marin while at rest and increass with walking/ standing. Standing/walking is difficult. Prior Functional Status Baseline Function- ADL's Independent Current Functional Impairments (Reported) Functional Limitations- ADL's IND Functional Limitations- Mobility/Gait Currently using 4WW with longer distances. PT-OP-C Subjective Start: 09/12/22 08:04 Freq: Status: Active Protocol: Document 09/18/22 13:02 TH (Rec: 09/18/22 15:20 TH [id number]) OP-PT Subjective Patient Comments Patient Comments Pt reports that symptoms are the same since eval. Patient Reported Progress Same PT-OP-F Manual Assessment Start: 09/12/22 08:04 Freq: Status: Active Protocol: Document 09/12/22 08:06 TH (Rec: 09/12/22 12:37 TH [id number]) Manual Assessments Other Manual Assessments Other Manual Assessments L ankle increased pronation, L knee hyperextended, r trunk ant rotated, right hip ant rotated, r leg functionally shorter than l LE. \ Tenderness right peroneal tendons, post. tib tendon, right lateral plantar fascia. left peroneal tendon PT-OP-Q Treatments Start: 09/12/22 08:04 Freq: Status: Active Protocol: Document 09/18/22 13:02 TH (Rec: 09/18/22 15:20 TH [id number]) Therapeutic Exercises Other Exercises bridges Comments 1 x 10 isometric hip abduction Comments 1 x 10 bilat ( pink band) Manual Therapy Treatment Manual Techniques IASTM Comments right plantar fascitis long axis traction Comments right LE Iliopsoas release Comments right PT-OP-R Modalities Start: 09/12/22 08:04 Freq: Status: Active Protocol: Document 09/18/22 13:02 TH (Rec: 09/18/22 15:20 TH [id number]) Ultrasound Therapy Treatment right PF Duty Cycle 10% Comments 2MHz 8 min PT-OP-T Assessment and Plan Start: 09/12/22 08:04 Freq: Status: Active Protocol: Document 09/18/22 13:02 TH (Rec: 09/18/22 15:20 TH [id number]) Physical Therapy Assessment Goals Two Impairment Transfers sit to stand difficult. Short Term Goal (STG) Pt will be able to sit to stand with pain <= 4/10. STG Duration 10/10/22 Spring Former Goal (LTG) Pt will be able to sit to stand with minimal to no pain. LTG Duration 12/05/22 One Impairment Prolonged walking / standing difficult. Short Term Goal (STG) Pt will be able to ambulate / stand for >= 30 min with <= 4 /10 pain. STG Duration 10/10/22 Alf Goal (LTG) Pt will be able to ambulate / stand for >= 30 min with minimal to no pain without use of AD. LTG Duration 12/05/22 Physical Therapy Plan Frequency and Duration Frequency of Treatment 1-2x/wk Duration of treatment (weeks) 12 Plan of Care Start Date 09/12/22 Plan of Care End Date 12/05/22 Therapeutic Interventions Therapeutic Interventions Gait Training,Home Exercise Program,Joint Mobilizations, Manual Therapy,Neuromuscular Re-education,Orthotic/ Prosthetic Management,Patient/ Caregiver Education,Self-Care/ Home Management,Taping, Therapeutic Activities, Therapeutic Exercises Modalities Cold Pack/Ice Massage,Electric Stimulation,Hot Packs, Iontophoresis,Ultrasound Next Visit Focus/Plan Next Visit Plan Level hips IASTM right Plantar facsia u/s ankle ex. bilat.
--- NOTE | 2022-09-20 15:06 | PT.OTN ---
Current Diagnoses Plantar fascial fibromatosis (09/20/22) Achilles tendinitis, unspecified leg (09/20/22) Physical Therapy Treatment Note PT-OP-A Visit Information Start: 09/12/22 08:04 Freq: Status: Active Protocol: Document 09/20/22 13:04 TH (Rec: 09/20/22 15:06 TH [id number]) Out-Patient Physical Therapy Visit Information Visit Information Visit Type Treatment Note Visit Start Time 13:00 Visit Stop Time 13:45 Total Visit Minutes 45 Visit Number 3 Number of POULTRY BARN MANAGER Visits 0 PT-OP-B Current Condition Start: 09/12/22 08:04 Freq: Status: Active Protocol: Document 09/12/22 08:06 TH (Rec: 09/12/22 12:37 TH [id number]) Current Condition History of Current Condition History of Current Condition Pt states that r foot pain began 07/31/22. As a result of foot pain pt also began to develope lower back. Since initial injury pt states pain to LB and foot have kamryn improving. Using a 4WW has been helping with foot pain. Pt lives in one ganesh home. There are two steps into home and pt is able to navigate steps using rail. Prior Treatments and Tests Hx of left knee TKA. R knee has severe OA. / pain in right foot marin while at rest and increass with walking/ standing. Standing/walking is difficult. Prior Functional Status Baseline Function- ADL's Independent Current Functional Impairments (Reported) Functional Limitations- ADL's IND Functional Limitations- Mobility/Gait Currently using 4WW with longer distances. PT-OP-C Subjective Start: 09/12/22 08:04 Freq: Status: Active Protocol: Document 09/20/22 13:04 TH (Rec: 09/20/22 15:06 TH [id number]) OP-PT Subjective Patient Comments Patient Comments Pt states pain had nearly resolved after last visit. She was able to walk short distances without pain and without using walker. Patient Reported Progress Improving PT-OP-F Manual Assessment Start: 09/12/22 08:04 Freq: Status: Active Protocol: Document 09/12/22 08:06 TH (Rec: 09/12/22 12:37 TH [id number]) Manual Assessments Other Manual Assessments Other Manual Assessments L ankle increased pronation, L knee hyperextended, r trunk ant rotated, right hip ant rotated, r leg functionally shorter than l LE. \ Tenderness right peroneal tendons, post. tib tendon, right lateral plantar fascia. left peroneal tendon PT-OP-Q Treatments Start: 09/12/22 08:04 Freq: Status: Active Protocol: Document 09/20/22 13:04 TH (Rec: 09/20/22 15:06 TH [id number]) Therapeutic Exercises Other Exercises ankle sommer/inv Comments towel scooping / eversion and inversion 2 x 10 for each Manual Therapy Treatment Manual Techniques IASTM Comments right plantar fascitis PT-OP-R Modalities Start: 09/12/22 08:04 Freq: Status: Active Protocol: Document 09/20/22 13:04 TH (Rec: 09/20/22 15:06 [id number]) Ultrasound Therapy Treatment right PF Patient Position Supine Coupling Medium Ultrasound Gel Applicator Size (cm2) 5 Mode Setting Continuous Duty Cycle 10% Intensity Setting (w/cm2) 2 Comments Noted tissue less ridgid then last visit. PT-OP-T Assessment and Plan Start: 09/12/22 08:04 Freq: Status: Active Protocol: Document 09/20/22 13:04 TH (Rec: 09/20/22 15:06 TH [id number]) Physical Therapy Assessment Goals Two Impairment Transfers sit to stand difficult. Short Term Goal (STG) Pt will be able to sit to stand with pain <= 4/10. STG Duration 10/10/22 Roof Bolter Operator Goal (LTG) Pt will be able to sit to stand with minimal to no pain. LTG Duration 12/05/22 One Impairment Prolonged walking / standing difficult. Short Term Goal (STG) Pt will be able to ambulate / stand for >= 30 min with <= 4 /10 pain. STG Duration 10/10/22 Fci Goal (LTG) Pt will be able to ambulate / stand for >= 30 min with minimal to no pain without use of AD. LTG Duration 12/05/22 Assessment Summary Assessment Pt is making steady progress as demonstrated by decreased pain. She did have mild pain when asked to walk longer distabce without walker. Hips have leveled out and as a result left ankle over pronation has improved. Ankle alignment improved with shoe inserts as well. Introduced ankle ex. today. Will assess response to ex. next visit. Physical Therapy Plan Frequency and Duration Frequency of Treatment 1-2x/wk Duration of treatment (weeks) 12 Plan of Care Start Date 09/12/22 Plan of Care End Date 12/05/22 Therapeutic Interventions Therapeutic Interventions Gait Training,Home Exercise Program,Joint Mobilizations, Manual Therapy,Neuromuscular Re-education,Orthotic/ Prosthetic Management,Patient/ Caregiver Education,Self-Care/ Home Management,Taping, Therapeutic Activities, Therapeutic Exercises Modalities Cold Pack/Ice Massage,Electric Stimulation,Hot Packs, Iontophoresis,Ultrasound Next Visit Focus/Plan Next Visit Plan Single leg balance, dynamic bal. ex. hip strengthen ex. u/s if needed IASTM if needed
--- NOTE | 2022-09-25 15:39 | PT.OTN ---
Current Diagnoses Plantar fascial fibromatosis (09/25/22) Achilles tendinitis, unspecified leg (09/25/22) Physical Therapy Treatment Note PT-OP-A Visit Information Start: 09/12/22 08:04 Freq: Status: Active Protocol: Document 09/25/22 13:00 TH (Rec: 09/25/22 15:39 TH [id number]) Out-Patient Physical Therapy Visit Information Visit Information Visit Type Treatment Note Visit Start Time 13:00 Visit Stop Time 13:45 Total Visit Minutes 45 Visit Number 4 Number of GUNNER'S MATE Visits 0 PT-OP-B Current Condition Start: 09/12/22 08:04 Freq: Status: Active Protocol: Document 09/12/22 08:06 TH (Rec: 09/12/22 12:37 TH [id number]) Current Condition History of Current Condition History of Current Condition Pt states that r foot pain began 07/31/22. As a result of foot pain pt also began to develope lower back. Since initial injury pt states pain to LB and foot have kamryn improving. Using a 4WW has been helping with foot pain. Pt lives in one ganesh home. There are two steps into home and pt is able to navigate steps using rail. Prior Treatments and Tests Hx of left knee TKA. R knee has severe OA. / pain in right foot marin while at rest and increass with walking/ standing. Standing/walking is difficult. Prior Functional Status Baseline Function- ADL's Independent Current Functional Impairments (Reported) Functional Limitations- ADL's IND Functional Limitations- Mobility/Gait Currently using 4WW with longer distances. PT-OP-C Subjective Start: 09/12/22 08:04 Freq: Status: Active Protocol: Document 09/25/22 13:00 TH (Rec: 09/25/22 15:39 TH [id number]) OP-PT Subjective Patient Comments Patient Comments Pt reports right pain has nearly resolved. Pain flares up some with increased walking . Pt is now able to ambulate without 4WW. She did state her balance feels a little off . PT-OP-F Manual Assessment Start: 09/12/22 08:04 Freq: Status: Active Protocol: Document 09/12/22 08:06 TH (Rec: 09/12/22 12:37 TH [id number]) Manual Assessments Other Manual Assessments Other Manual Assessments L ankle increased pronation, L knee hyperextended, r trunk ant rotated, right hip ant rotated, r leg functionally shorter than l LE. \ Tenderness right peroneal tendons, post. tib tendon, right lateral plantar fascia. left peroneal tendon PT-OP-Q Treatments Start: 09/12/22 08:04 Freq: Status: Active Protocol: Document 09/25/22 13:00 TH (Rec: 09/25/22 15:39 TH [id number]) Therapeutic Exercises Other Exercises single leg balance Comments 3 x 15 bilat. cues to keep hips level wall squats Comments 1 x 5 10 sec holds cues for hip add bridges Comments 2 x 10 with hip add. isometric hip abduction Comments 2 x 10 pink band Manual Therapy Treatment Manual Techniques KT Comments KT to right patella lateral to medial with slight medial tilt IASTM Comments right planjtar fascia PT-OP-R Modalities Start: 09/12/22 08:04 Freq: Status: Active Protocol: Document 09/20/22 13:04 TH (Rec: 09/20/22 15:06 TH [id number]) Ultrasound Therapy Treatment right PF Patient Position Supine Coupling Medium Ultrasound Gel Applicator Size (cm2) 5 Mode Setting Continuous Duty Cycle 10% Intensity Setting (w/cm2) 2 Comments Noted tissue less ridgid then last visit. PT-OP-T Assessment and Plan Start: 09/12/22 08:04 Freq: Status: Active Protocol: Document 09/25/22 13:00 TH (Rec: 09/25/22 15:39 TH [id number]) Physical Therapy Assessment Goals Two Impairment Transfers sit to stand difficult. Short Term Goal (STG) Pt will be able to sit to stand with pain <= 4/10. 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 LTG Duration 12/05/22 One Impairment Prolonged walking / standing difficult. Short Term Goal (STG) Pt will be able to ambulate / stand for >= 30 min with <= 4 /10 pain. STG Duration 10/10/22 Fci Goal (LTG) Pt will be able to ambulate / stand for >= 30 min with minimal to no pain without use of AD. LTG Duration 12/05/22 Assessment Summary Assessment Pt is making excellent progress as demonstrated by hips now level, pain nearly resolved and improved ankle/ hip strength. Will likely dc in 1-2 visits after finalizing HEP. Physical Therapy Plan Frequency and Duration Frequency of Treatment 1-2x/wk Duration of treatment (weeks) 12 Plan of Care Start Date 09/12/22 Plan of Care End Date 12/05/22 Therapeutic Interventions Therapeutic Interventions Gait Training,Home Exercise Program,Joint Mobilizations, Manual Therapy,Neuromuscular Re-education,Orthotic/ Prosthetic Management,Patient/ Caregiver Education,Self-Care/ Home Management,Taping, Therapeutic Activities, Therapeutic Exercises Modalities Cold Pack/Ice Massage,Electric Stimulation,Hot Packs, Iontophoresis,Ultrasound
--- NOTE | 2022-09-27 16:38 | PT.OPDS ---
Current Diagnoses Plantar fascial fibromatosis (09/27/22) Achilles tendinitis, unspecified leg (09/27/22) Visit Care Team Role Provider Type Sophia Ruiz DO Attending Provider Physician Family Provider Primary Care Provider Referring Provider Specialty: [facility] Practice Address: [address] [place] [address], [address], [address] Email: [email or web address] Visit Number Visit Number 5 Discharge Summary PT-OP-B Current Condition Start: 09/12/22 08:04 Freq: Status: Active Protocol: Document 09/12/22 08:06 TH (Rec: 09/12/22 12:37 TH [id number]) Current Condition History of Current Condition History of Current Condition Pt states that r foot pain began 07/31/22. As a result of foot pain pt also began to develope lower back. Since initial injury pt states pain to LB and foot have kamryn improving. Using a 4WW has been helping with foot pain. Pt lives in one ganesh home. There are two steps into home and pt is able to navigate steps using rail. Prior Treatments and Tests Hx of left knee TKA. R knee has severe OA. / pain in right foot marin while at rest and increass with walking/ standing. Standing/walking is difficult. Prior Functional Status Baseline Function- ADL's Independent Current Functional Impairments (Reported) Functional Limitations- ADL's IND Functional Limitations- Mobility/Gait Currently using 4WW with longer distances. PT-OP-C Subjective Start: 09/12/22 08:04 Freq: Status: Active Protocol: Document 09/27/22 16:33 TH (Rec: 09/27/22 16:38 TH [id number]) OP-PT Subjective Patient Comments Patient Comments Pt states r foot pain has resolved and has not flared up with longer distance walking. PT-OP-F Manual Assessment Start: 09/12/22 08:04 Freq: Status: Active Protocol: Document 09/12/22 08:06 TH (Rec: 09/12/22 12:37 TH [id number]) Manual Assessments Other Manual Assessments Other Manual Assessments L ankle increased pronation, L knee hyperextended, r trunk ant rotated, right hip ant rotated, r leg functionally shorter than l LE. \ Tenderness right peroneal tendons, post. tib tendon, right lateral plantar fascia. left peroneal tendon PT-OP-T Assessment and Plan Start: 09/12/22 08:04 Freq: Status: Active Protocol: Document 09/27/22 16:33 TH (Rec: 09/27/22 16:38 TH [id number]) Physical Therapy Assessment Goals Two Impairment Transfers sit to stand difficult. Short Term Goal (STG) Pt will be able to sit to stand with pain <= 4/10. STG Duration 10/10/22 MET Alf Goal (LTG) Pt will be able to sit to stand with minimal to no pain. LTG Duration 12/05/22 One Impairment Prolonged walking / standing difficult. Short Term Goal (STG) Pt will be able to ambulate / stand for >= 30 min with <= 4 /10 pain. STG Duration 10/10/22 MET Alf Goal (LTG) Pt will be able to ambulate / stand for >= 30 min with minimal to no pain without use of AD. LTG Duration 12/05/22 Assessment Summary Assessment Pt has Met all goals and has been dc from PT
== END 2022-10-31 09:18 | disposition home or self-care (01) ==
LOC: PHYS 13:45
PROVIDERS: Family Provider Family Medicine; PCP Family Medicine; Referring Provider Family Medicine; Visit Provider Family Medicine
DX: M72.2 Plantar fascial fibromatosis (principal); M76.60 Achilles tendinitis, unspecified leg
CPT/HCPCS: 97035; 97110; 97140; 97161; 97530

== ENCOUNTER → 2023-01-21 10:56 | Outpatient (CLI) | payer MEDICARE, SELFPAY ==
[2018-05-15 14:42] VITALS: BMI 36.5
[2023-01-21 13:00] LABS: BUN Creatinine Ratio 26.2 (6-22); Blood Urea Nitrogen 16 mg/dL (7-17); Calcium 9.1 mg/dL (8.4-10.2); Carbon Dioxide 36 mmol/L (22-32); Chloride 97 mmol/L (98-107); Estimated Glomerular Filt Rate > 60 mL/min (>60); Glucose 102 mg/dL (80-110); HEMOLYSIS < 15 (0-50); Potassium 4.7 mmol/L (3.4-5.1); Sodium 138 mmol/L (137-145)
== END ==
PROVIDERS: Family Provider Family Medicine; PCP Family Medicine; Referring Provider Family Medicine; Visit Provider Family Medicine
DX: R73.01 Impaired fasting glucose (principal); I48.91 Unspecified atrial fibrillation
CPT/HCPCS: 36415; 80048; 83036

== ENCOUNTER → 2023-04-24 07:24 | Outpatient (CLI) | payer MEDICARE, SELFPAY ==
[2018-05-15 14:42] VITALS: BMI 36.5
[2023-04-24 08:57] LABS: Cholesterol 228 mg/dL (140-199); HDL Cholesterol 72 mg/dL (40-60); LDL Cholesterol Calculated 131 mg/dL (<100); Triglycerides 124 mg/dL (35-150)
== END ==
PROVIDERS: Family Provider Family Medicine; PCP Family Medicine; Referring Provider Nurse Practitioner; Visit Provider Nurse Practitioner
DX: E78.5 Hyperlipidemia, unspecified (principal)
CPT/HCPCS: 36415; 80061

== ENCOUNTER → 2023-07-29 11:11 | Outpatient (CLI) | payer MEDICARE, SELFPAY ==
[2018-05-15 14:42] VITALS: BMI 36.5
[2023-07-29 12:16] LABS: Alanine Aminotransferase 33 IU/L (<35); Albumin 4.4 g/dL (3.5-5.0); Albumin Globulin Ratio 1.2 (1.0-2.8); Alkaline Phosphatase 78 U/L (38-126); Aspartate Aminotransferase 34 IU/L (14-36); BUN Creatinine Ratio 30.2 (6-22); Bilirubin Total 0.8 mg/dL (0.2-1.3); Blood Urea Nitrogen 19 mg/dL (7-17); Calcium 9.8 mg/dL (8.4-10.2); Carbon Dioxide 35 mmol/L (22-32); Chloride 96 mmol/L (98-107); Estimated Glomerular Filt Rate > 60 mL/min (>60); Globulin 3.6 g/dL (1.7-4.1); Glucose 114 mg/dL (80-110); HEMOLYSIS < 15 (0-50); Potassium 4.4 mmol/L (3.4-5.1); Sodium 137 mmol/L (137-145)
[2023-07-29 12:29] LABS: Hemoglobin A1C% w Est Avg Glu 5.8 % (4.0-6.0)
== END ==
PROVIDERS: Family Provider Family Medicine; PCP Family Medicine; Referring Provider Family Medicine; Visit Provider Family Medicine
DX: R73.01 Impaired fasting glucose (principal); I48.91 Unspecified atrial fibrillation; E66.01 Morbid (severe) obesity due to excess calories
CPT/HCPCS: 36415; 80053; 83036

== ENCOUNTER → 2024-02-04 10:26 | Outpatient (CLI) | payer MEDICARE, SELFPAY ==
[2018-05-15 14:42] VITALS: BMI 36.5
[2024-02-04 13:16] LABS: BUN Creatinine Ratio 30.3 (6-22); Blood Urea Nitrogen 20 mg/dL (7-17); Carbon Dioxide 32 mmol/L (22-32); Chloride 99 mmol/L (98-107); Estimated Glomerular Filt Rate > 60 mL/min (>60); Glucose 104 mg/dL (80-110); HEMOLYSIS < 15 (0-50); Potassium 4.9 mmol/L (3.4-5.1); Sodium 138 mmol/L (137-145)
== END ==
PROVIDERS: Family Provider Family Medicine; PCP Family Medicine; Referring Provider Nurse Practitioner; Visit Provider Nurse Practitioner
DX: I48.19 Other persistent atrial fibrillation (principal); Z51.81 Encounter for therapeutic drug level monitoring; Z79.899 Other long term (current) drug therapy
CPT/HCPCS: 36415; 80048

== ENCOUNTER → 2024-08-07 11:21 | Outpatient (CLI) | payer MEDICARE, SELFPAY ==
[2018-05-15 14:42] VITALS: BMI 36.5
[2024-08-07 12:09] LABS: Hematocrit 41.1 % (36-46); Hemoglobin 13.6 g/dL (12.0-16.0); Mean Corpuscular HGB Conc 33.1 % (30-36); Mean Corpuscular Hemoglobin 30.5 PG (26-34); Mean Corpuscular Volume 92.1 fL (80-100); Platelet Count 274 X10^3/uL (150-400); Red Blood Cell Count 4.46 X10^6/uL (4.0-5.2); Red Cell Distribution Width 13.2 % (11.6-14.8); White Blood Cell Count 5.9 X10^3/uL (4.5-11.0)
[2024-08-07 12:20] LABS: Hemoglobin A1C% w Est Avg Glu 5.9 % (4.0-6.0)
[2024-08-07 12:30] LABS: Alanine Aminotransferase 36 IU/L (<35); Albumin 4.6 g/dL (3.5-5.0); Albumin Globulin Ratio 1.6 (1.0-2.8); Alkaline Phosphatase 75 U/L (38-126); Aspartate Aminotransferase 41 IU/L (14-36); BUN Creatinine Ratio 24.7 (6-22); Bilirubin Total 0.8 mg/dL (0.2-1.3); Blood Urea Nitrogen 18 mg/dL (7-17); Calcium 9.3 mg/dL (8.4-10.2); Carbon Dioxide 37 mmol/L (22-32); Chloride 97 mmol/L (98-107); Estimated Glomerular Filt Rate > 60 mL/min (>60); Globulin 2.9 g/dL (1.7-4.1); Glucose 116 mg/dL (80-110); HEMOLYSIS < 15 (0-50); Potassium 4.5 mmol/L (3.4-5.1); Sodium 139 mmol/L (137-145); Total Protein 7.5 g/dL (6.3-8.2)
[2024-08-07 13:15] LABS: Hep C Virus Ab w/Reflex Quant NEGATIVE s/c (NEGATIVE)
[2024-08-07 13:47] LABS: Appearance Urine UA CLEAR; Bilirubin Urine UA NEGATIVE (NEGATIVE); Color Urine UA YELLOW; Glucose Urine UA NEGATIVE (Negative); Ketones Urine UA NEGATIVE (NEGATIVE); Leukocyte Esterase Urine UA 1+ (NEGATIVE); Nitrite Urine UA NEGATIVE (Negative); Occult Blood Urine UA NEGATIVE (Negative); Protein Urine UA NEGATIVE (Negative); Urobilinogen Urine UA 0.2 E.U./dL (0.2); pH Urine UA 5.5 (4.5-8.0)
[2024-08-07 13:51] LABS: Urine Volume 10mL (spun)
[2024-08-07 13:52] LABS: Bacteria Urine None Seen; Culture Indicated Urine Specimen Cultured; RBC Urine None Seen (0-5/HPF); Squamous Epithelial Cell Urine 1-5 /HPF (0-5/HPF); WBC Urine 1-5/HPF (0-5/HPF)
== END ==
PROVIDERS: Family Provider Family Medicine; PCP Family Medicine; Referring Provider Family Medicine; Visit Provider Family Medicine
DX: Z00.00 Encounter for general adult medical examination without abnormal findings (principal); I10 Essential (primary) hypertension; R73.01 Impaired fasting glucose; I48.91 Unspecified atrial fibrillation; E66.01 Morbid (severe) obesity due to excess calories; E78.2 Mixed hyperlipidemia; R42 Dizziness and giddiness
CPT/HCPCS: 36415; 80053; 81001; 83036; 85027; 86803; 87086

== ENCOUNTER → 2024-10-09 07:29 | Outpatient (CLI) | payer MEDICARE, SELFPAY ==
[2018-05-15 14:42] VITALS: BMI 36.5
[2024-10-09 14:14] LABS: Alanine Aminotransferase 30 IU/L (<35); Albumin 4.3 g/dL (3.5-5.0); Albumin Globulin Ratio 1.5 (1.0-2.8); Alkaline Phosphatase 72 U/L (38-126); Aspartate Aminotransferase 32 IU/L (14-36); BUN Creatinine Ratio 26.3 (6-22); Bilirubin Total 0.8 mg/dL (0.2-1.3); Blood Urea Nitrogen 15 mg/dL (7-17); Calcium 9.4 mg/dL (8.4-10.2); Carbon Dioxide 30 mmol/L (22-32); Chloride 98 mmol/L (98-107); Cholesterol 158 mg/dL (140-199); Estimated Glomerular Filt Rate > 60 mL/min (>60); Globulin 2.9 g/dL (1.7-4.1); Glucose 116 mg/dL (80-110); HDL Cholesterol 65 mg/dL (40-60); HEMOLYSIS < 15 (0-50); LDL Cholesterol Calculated 73 mg/dL (<100); Potassium 4.4 mmol/L (3.4-5.1); Sodium 139 mmol/L (137-145); Total Protein 7.2 g/dL (6.3-8.2); Triglycerides 100 mg/dL (35-150)
== END ==
PROVIDERS: Family Provider Family Medicine; PCP Family Medicine; Referring Provider Nurse Practitioner; Visit Provider Nurse Practitioner
DX: I50.32 Chronic diastolic (congestive) heart failure (principal); I48.19 Other persistent atrial fibrillation
CPT/HCPCS: 36415; 80053; 80061

== ENCOUNTER → 2025-02-15 10:53 | Outpatient (CLI) | payer MEDICARE, SELFPAY ==
[2018-05-15 14:42] VITALS: BMI 36.5
[2025-02-15 12:04] LABS: Hemoglobin A1C% w Est Avg Glu 6.1 % (4.0-6.0)
[2025-02-15 12:24] LABS: Blood Urea Nitrogen 22 mg/dL (7-17); Calcium 9.4 mg/dL (8.4-10.2); Carbon Dioxide 31 mmol/L (22-32); Chloride 96 mmol/L (98-107); Estimated Glomerular Filt Rate > 60 mL/min (>60); Glucose 107 mg/dL (70-99); HEMOLYSIS < 15 (0-50); Potassium 4.4 mmol/L (3.4-5.1); Sodium 137 mmol/L (137-145)
== END ==
PROVIDERS: PCP Family Medicine; Referring Provider Family Medicine; Visit Provider Family Medicine
DX: Z00.00 Encounter for general adult medical examination without abnormal findings (principal); R73.01 Impaired fasting glucose; I10 Essential (primary) hypertension; I48.0 Paroxysmal atrial fibrillation
CPT/HCPCS: 36415; 80048; 83036

== ENCOUNTER → 2025-07-06 13:28 | Outpatient (CLI) | payer MEDICARE, SELFPAY ==
[2018-05-15 14:42] VITALS: BMI 36.5
--- NOTE | 2025-07-06 13:30 | DI.MG.S_ITS ---
MM screening mammo BI: 07/06/2025. BI-RADS: 1 CLINICAL: 74-year old female for bilateral screening mammogram. Tyrer-Cuzick lifetime risk of 3.5%. No personal or first-degree family history of breast cancer. PRIOR EXAMS: None. This is a baseline mammogram. MAMMOGRAPHY TECHNIQUE: 2D and 3D (tomosynthesis) digital mammographic views obtained, with additional images as needed for full coverage. Current study was also evaluated with a Computer Aided Detection (CAD) system. DENSITY B. There are scattered areas of fibroglandular density. MAMMOGRAPHY FINDINGS Bilateral: No suspicious mass, asymmetry, microcalcification, or other abnormality seen. IMPRESSION: * No evidence of malignancy. RECOMMENDATIONS Bilateral * Annual screening mammography. OVERALL ASSESSMENT CATEGORY BI-RADS-1: Negative. [employer] recommends annual screening mammography beginning at age 40 for women with average risk of breast cancer. ELECTRONICALLY SIGNED: Ed Moran M.D. on 07/07/2025 at 01:36:30 PM PT Interpreting Station ID: [id number]
== END ==
LOC: MAMMO 13:28
PROVIDERS: PCP Family Medicine; Referring Provider Family Medicine; Visit Provider Family Medicine
DX: Z12.31 Encounter for screening mammogram for malignant neoplasm of breast (principal)
CPT/HCPCS: 77063; 77067